=== PATIENT | male | born 1990 | race Caucasian/White ===

== ENCOUNTER 2016-11-08 18:46 | Emergency (ER) | payer MEDICAID ==
[~2016-11-08] VITALS: Ht 185.4 cm; Wt 77.0 kg
[~2016-11-08 18:46] MED LIST: BENZ100 PO; CETI10 PO; FLUT1SPR9; MONT10TA2 PO; PRED50 PO; VENTAER INH; ZITH250T PO
[2016-11-08 18:49] VITALS: BP 129/80; PULSE 69; RESP 16; TEMP 98.3; O2SAT 97
--- NOTE | 2016-11-08 19:05 | PD ---
HPI Chief Complaint: Musculoskeletal Complaint Time Seen by Provider: 19:05 Travel History International Travel<30 days: No Contact w/Intl Traveler<30days: No Traveled to known affect area: No History of Present Illness HPI 36-year-old male with PMH of asthma presents to the ED for evaluation of 6-8 month history of shooting pain in the extremities, numbness in the extremities, back pain, neck pain. He states that the numbness in his upper extremities begins distally and moves toward the body. He states that the upper extremity numbness occasionally wakes him from sleep. He states that the back pain radiates to bilateral buttocks, outer thighs and toes. He denies history of any traumatic/acute injury. He denies fevers, chills, weakness or limitations to ROM. He denies saddle anesthesia or incontinence. He sought treatment today because his legs are "going numb" at work. He takes no daily medications. Denies drug or alcohol use. NKDA. PFSH Past Medical History Asthma: Yes Diminished Hearing: No Headaches: Yes Psychiatric: No Respiratory: Yes (PNA) Integumentary: Yes (MRSA) Immunizations Current: Yes Tetanus Vaccination: < 5 Years Influenza Vaccination: No Past Surgical History Abdominal Surgery: Yes (Umb. hernia as ) Social History Alcohol Use: No Tobacco Use: No Substance Use: No (Denies today) Allergies-Medications (Allergen,Severity, Reaction): Coded Allergies: No Known Allergies (Verified , 11/08/16) Reported Meds & Prescriptions Reported Meds & Active Scripts Active No Active Prescriptions or Reported Medications Review of Systems Except as stated in HPI: all other systems reviewed are Neg Physical Exam Narrative GENERAL: Well-nourished, well-developed white male in no acute distress. SKIN: Warm and dry. Thorough evaluation reveals no edema, ecchymosis, abrasion , or laceration of the skin. HEAD: Normocephalic. Atraumatic. No raccoon eyes or renee sign. No tenderness to palpation of the skull. No bony step-offs. No malocclusion of the teeth. EYES: No scleral icterus. No injection or drainage. PERRLA. EOMI. ENT: Pearly quigley tympanic membrane is bilaterally. Nasal mucosa is moist. Oropharynx without erythema, edema or exudate. NECK: Supple, trachea midline. No JVD or lymphadenopathy. No midline tenderness to palpation. Patient retains full, active, painless range of motion of the neck. No meningeal signs. CARDIOVASCULAR: Regular rate and rhythm without murmurs, gallops, or rubs. 2+ DP and radial pulses bilaterally. RESPIRATORY: Breath sounds clear and equal bilaterally. No accessory muscle use. GASTROINTESTINAL: Abdomen soft, non-tender, nondistended. + Bowel sounds MUSCULOSKELETAL: No cyanosis, or edema. No tenderness to palpation or limitations to range of motion of the joints of the upper and lower extremities bilaterally. Phalen maneuver positive. Straight leg raise negative bilaterally. NEUROLOGICAL: Awake and alert. Cranial nerves II through XII intact. Motor and sensory grossly within normal limits. 5/5 muscle strength in all muscle groups. No pronator drift. Normal speech. BACK: Nontender without obvious deformity. No CVA tenderness. No midline tenderness. Data Data Last Documented VS Vital Signs Date Time Temp Pulse Resp B/P Pulse Ox O2 Delivery O2 Flow Rate FiO2 11/08/16 18:49 98.3 69 16 129/80 97 MDM Medical Decision Making Medical Screen Exam Complete: Yes Emergency Medical Condition: Yes Differential Diagnosis carpal tunnel versus sciatica versus meningitis versus malingering versus other Narrative Course 36-year-old male presents to the ED for evaluation of 6-8 month history of shooting pain in the extremities, numbness in the extremities, back pain, neck pain. He states that the numbness in his upper extremities begins distally and moves toward the body and occasionally wakes him from sleep. He states that the back pain radiates to bilateral buttocks, outer thighs and toes. He denies history of any traumatic/acute injury, fevers, chills, weakness, limitations to ROM,saddle anesthesia or incontinence. He sought treatment today because his legs are "going numb" at work. Vitals reviewed. Physical exam reveals a well- appearing male in no acute distress. No focal neural deficits, loss of strength , meningeal signs. Phalen's maneuver is positive. Patient is repeatedly requesting a CT. I informed him that there is no clinical indication for emergent CT at this time. He does describe symptoms consistent with sciatic neuralgia and carpal tunnel syndrome. Neither of these is an indication for a CT. I informed the patient of the patient chiropractic assistant's program and suggested that he establish primary care with Dr. Pineda who may order an outpatient CT. I offered patient medications to treat his sciatic neuralgia which he declined. Patient is instructed to follow up with the patient assistance program as discussed. He indicated understanding of the instructions and is agreeable to the care plan. He is stable and discharged home. Diagnosis Primary Impression: Encounter for medical screening examination Additional Impressions: Numbness and tingling in both hands Sciatica neuralgia Qualified Code: M54.31 - Bilateral sciatica Referrals: Becky Pineda MD Additional Instructions: [email or web address] registration will call your regarding the patient assistance program. Fill out the paperwork completely to be considered for free or reduced fee healthcare. Follow-up on an outpatient basis as discussed. Return to the ED for any urgent or emergent medical condition. Scripts No Active Prescriptions or Reported Meds Disposition: 01 DISCHARGE HOME Condition: Stable Cee Lee Nov 08, 2016 19:05
== END 2016-11-08 20:16 | disposition home or self-care (01) ==
LOC: PHEFT 18:46
DX: R20.0 Anesthesia of skin (principal); R20.2 Paresthesia of skin; M54.31 Sciatica, right side; M54.9 Dorsalgia, unspecified; M54.2 Cervicalgia; Z87.09 Personal history of other diseases of the respiratory system; Z86.14 Personal history of Methicillin resistant Staphylococcus aureus infection; Z13.9 Encounter for screening, unspecified
CPT/HCPCS: 99283

== ENCOUNTER 2017-01-24 00:15 | Emergency (ER) | payer MEDICAID ==
[~2017-01-24] VITALS: Ht 185.4 cm; Wt 77.5 kg
[2017-01-24 00:27] VITALS: BP 142/88; PULSE 90; RESP 18; TEMP 98.2; O2SAT 100
[2017-01-24 01:40] VITALS: O2SAT 100
[2017-01-24 01:45] VITALS: BP_SYST 122; BP_SYST 125; BP_DIAS 70; BP_DIAS 75; PULSE 60; RESP 18; O2SAT 100
[2017-01-24] MEDS ORDERED: SODIUM CHLORIDE 0.9% FLUSH 10 ML FLUSH IVF PRN (01:45)
[2017-01-24 02:07] LABS: AUTOMATED NEUTROPHIL # 6.9 TH/MM3 (1.8-7.7); BASOPHIL # 0.1 TH/MM3 (0-0.2); BASOPHIL % 0.8 % (0.0-2.0); EOSINOPHIL # 0.3 TH/MM3 (0-0.4); HEMATOCRIT 44.9 % (39.0-51.0); HEMO FLAGS DIFF FINAL; LYMPH % 20.7 % (9.0-44.0); LYMPHOCYTE # 2.1 TH/MM3 (1.0-4.8); MEAN CELL VOLUME 86.9 FL (80.0-100.0); MEAN CORPUSCULAR HEMOGLOBIN 29.1 PG (27.0-34.0); MEAN CORPUSCULAR HGB CONC 33.5 % (32.0-36.0); MONO % 7.4 % (0.0-8.0); NEUT % 68.1 % (16.0-70.0); PLATELET COUNT 220 TH/MM3 (150-450); RED BLOOD COUNT 5.17 MIL/MM3 (4.50-5.90); RED CELL DISTRIBUTION WIDTH 12.9 % (11.6-17.2); WHITE BLOOD COUNT 10.1 TH/MM3 (4.0-11.0)
--- NOTE | 2017-01-24 02:09 | RADRPT ---
EXAM DATE/TIME: 01/24/2017 01:53 [facility] COMPARISON: No previous studies available for comparison. INDICATIONS : Chest pain. MEDICAL HISTORY : Asthma. SURGICAL HISTORY : None. ENCOUNTER: Initial ACUITY: 1 day PAIN SCORE: 7/10 LOCATION: Bilateral chest FINDINGS: A single view of the chest demonstrates the lungs to be symmetrically aerated without evidence of mas s, infiltrate or effusion. The cardiomediastinal contours are unremarkable. Osseous structures are intact. CONCLUSION: No evidence of acute cardiopulmonary disease. Mauro Rizzo MD on January 24, 2017 at 2:07 Board Certified Radiologist. This report was verified electronically.
[2017-01-24 02:13] LABS: CHLORIDE 105 MEQ/L (98-107); POTASSIUM 3.5 MEQ/L (3.5-5.1); SODIUM (NA) 139 MEQ/L (136-145)
[2017-01-24 02:15] VITALS: BP 124/65; PULSE 60; RESP 18; O2SAT 99
[2017-01-24 02:16] LABS: ANION GAP 8 MEQ/L (5-15); BICARBONATE 26.2 MEQ/L (21.0-32.0); MAGNESIUM 2.3 MG/DL (1.5-2.5)
[2017-01-24 02:17] LABS: BLOOD UREA NITROGEN 9 MG/DL (7-18); PROTHROMBIN TIME - PATIENT 11.2 SEC (9.8-11.6)
[2017-01-24 02:20] LABS: GLOMERULAR FILTRATION RATE 107 ML/MIN (>89)
[2017-01-24 02:23] LABS: CREATINE KINASE 120 U/L (39-308)
[2017-01-24 02:35] LABS: CKMB 1.1 NG/ML (0.5-3.6)
--- NOTE | 2017-01-24 02:43 | PD ---
HPI Chief Complaint: Chest Pain Time Seen by Provider: 01:36 Travel History International Travel<30 days: No Contact w/Intl Traveler<30days: No Traveled to known affect area: No History of Present Illness HPI 26-year-old male presents to the emergency department by private transportation for complaint of chest pain and shortness of breath that he's noted each night about this time over the past 2 nights. Patient states he is very concerned as he has a family history of diabetes and cancer. Patient recently had family members from cancer including his sister is melanoma his grandfather with lung cancer in his grandmother with diabetes. Patient denies any family history of premature onset heart disease or sudden . Patient denies personal history of CAD, arrhythmia, hypertension, diabetes, dyslipidemia , tobacco use or alcohol use. Patient denies substance use. Patient also denies any recent long distance travel, protracted bedrest her surgical procedure. Patient denies any family history of personal history of clotting disorder or coagulopathy. Patient has had no pleuritic chest pain hemoptysis febrile illness infectious respiratory illness or lower extremity pain or swelling. Patient rates current discomfort 0/10 in intensity. PFSH Past Medical History Narrative Medical Asthma, pneumonia, herniorrhaphy, tobacco use; nursing notes reviewed Asthma: Yes Diminished Hearing: No Headaches: Yes Psychiatric: No Respiratory: Yes (PNA) Integumentary: Yes (MRSA) Immunizations Current: Yes Tetanus Vaccination: < 5 Years Influenza Vaccination: No Past Surgical History Abdominal Surgery: Yes (Umb. hernia as infant ) Social History Alcohol Use: No Tobacco Use: Yes (5-10 cigarettes per day ) Substance Use: No (Denies today) Allergies-Medications (Allergen,Severity, Reaction): Coded Allergies: No Known Allergies (Verified , 01/24/17) Reported Meds & Prescriptions Reported Meds & Active Scripts Active No Active Prescriptions or Reported Medications Review of Systems Except as stated in HPI: all other systems reviewed are Neg General / Constitutional: No: Fever, Chills Eyes: No: Visual changes HENT: No: Headaches, Lightheadedness, Congestion Cardiovascular: No: Chest Pain or Discomfort (occasional none now), Diaphoresis Respiratory: Positive: Shortness of Breath (occasional) Gastrointestinal: No: Abdominal Pain ( none now) Genitourinary: No: Flank Pain Musculoskeletal: No: Myalgias, Arthralgias, Cramping, Edema, Pain Neurologic: No: Weakness, Dizziness, Syncope, Focal Abnormalities, Coordination Problem Psychiatric: Positive: Anxiety Hematologic/Lymphatic: No: Lymph Node Enlargement Physical Exam Narrative GENERAL: Well-developed well-nourished male in no acute distress no respiratory distress SKIN: Warm and dry. HEAD: Normocephalic. EYES: No scleral icterus. No injection or drainage. NECK: Supple, trachea midline. No JVD or lymphadenopathy. CARDIOVASCULAR: Regular rate and rhythm without murmurs, gallops, or rubs. RESPIRATORY: Breath sounds equal bilaterally. No accessory muscle use. GASTROINTESTINAL: Abdomen soft, non-tender, nondistended. MUSCULOSKELETAL: No cyanosis, or edema. Bilateral radial and dorsalis pedis pulses 2+ to palpation BACK: Nontender without obvious deformity. No CVA tenderness. Data Data Last Documented VS Vital Signs Date Time Temp Pulse Resp B/P Pulse Ox O2 Delivery O2 Flow Rate FiO2 01/24/17 03:05 62 18 122/65 99 01/24/17 02:15 Room Air 01/24/17 00:27 98.2 Orders Electrocardiogram (01/24/17 01:11) Electrocardiogram (01/24/17 01:36) Basic Metabolic Panel (Bmp) (01/24/17 01:36) Ckmb (Isoenzyme) Profile (01/24/17 01:36) Complete Blood Count With Diff (01/24/17 01:36) Magnesium (Mg) (01/24/17 01:36) Prothrombin Time / Inr (Pt) (01/24/17 01:36) Act Partial Throm Time (Ptt) (01/24/17 01:36) Troponin I (01/24/17 01:36) Chest, Single Ap (01/24/17 01:36) Ecg Monitoring (01/24/17 01:36) Bilateral Bp Monitoring (01/24/17 01:36) Iv Access Insert/Monitor (01/24/17 01:36) Oximetry (01/24/17 01:36) Oxygen Administration (01/24/17 01:36) Sodium Chloride 0.9% Flush (Ns Flush) (01/24/17 01:45) CKMB (01/24/17 01:45) CKMB% (01/24/17 01:45) Labs Laboratory Tests Test 01/24/17 01:45 White Blood Count 10.1 TH/MM3 Red Blood Count 5.17 MIL/MM3 Hemoglobin 15.1 GM/DL Hematocrit 44.9 % Mean Corpuscular Volume 86.9 FL Mean Corpuscular Hemoglobin 29.1 PG Mean Corpuscular Hemoglobin 33.5 % Concent Red Cell Distribution Width 12.9 % Platelet Count 220 TH/MM3 Mean Platelet Volume 8.8 FL Neutrophils (%) (Auto) 68.1 % Lymphocytes (%) (Auto) 20.7 % Monocytes (%) (Auto) 7.4 % Eosinophils (%) (Auto) 3.0 % Basophils (%) (Auto) 0.8 % Neutrophils # (Auto) 6.9 TH/MM3 Lymphocytes # (Auto) 2.1 TH/MM3 Monocytes # (Auto) 0.7 TH/MM3 Eosinophils # (Auto) 0.3 TH/MM3 Basophils # (Auto) 0.1 TH/MM3 CBC Comment DIFF FINAL Differential Comment Prothrombin Time 11.2 SEC Prothromb Time International 1.0 RATIO Ratio Activated Partial 29.0 SEC Thromboplast Time Sodium Level 139 MEQ/L Potassium Level 3.5 MEQ/L Chloride Level 105 MEQ/L Carbon Dioxide Level 26.2 MEQ/L Anion Gap 8 MEQ/L Blood Urea Nitrogen 9 MG/DL Creatinine 0.86 MG/DL Estimat Glomerular Filtration 107 ML/MIN Rate Random Glucose 96 MG/DL Calcium Level 8.9 MG/DL Magnesium Level 2.3 MG/DL Total Creatine Kinase 120 U/L Creatine Kinase MB 1.1 NG/ML Troponin I LESS THAN 0.02 NG/ML MDM Medical Decision Making Medical Screen Exam Complete: Yes Emergency Medical Condition: Yes Medical Record Reviewed: Yes Interpretation(s) EKG: Normal sinus rhythm no acute ST elevation injury pattern or ectopy noted; rightward axis, incomplete right bundle branch. Troponin I less than 0.02, not elevated CKs 120, not elevated Last Impressions Chest X-Ray 01/24/17 0136 Signed Impressions: Service Date/Time: January 01:53 - CONCLUSION: No evidence of acute cardiopulmonary disease. aMuro Rizzo MD CBC & BMP Diagram 01/24/17 01:45 Vital Signs Date Time Temp Pulse Resp B/P Pulse Ox O2 Delivery O2 Flow Rate FiO2 01/24/17 01:50 18 100 Room Air 6/22/17 01:45 60 18 125/70 100 Room Air 122/75 01/24/17 01:40 100 Room Air 01/24/17 01:40 100 Room Air 01/24/17 00:27 98.2 90 18 142/88 100 Differential Diagnosis Dyspnea, atypical chest pain, ACS, MO, arrhythmia, electronic disturbance, PE, pneumonia, dehydration, substance ingestion anxiety Narrative Course Patient placed on cafeteria monitor EKG performed IV access obtained and specimens collected and sent for resulting she shows no acute ST elevation or injury PERC negative Lab values found to be grossly normal range; EKG shows no tachycardia and room air O2 saturation 100%; patient denies any symptoms at this time; patient has experienced no chest pain or pleuritic chest pain or shortness of breath in the emergency department. Patient is stable for outpatient management and follow- up with primary care provider. Diagnosis Primary Impression: Atypical chest pain Referrals: Primary Care Physician call for appointment Patient Instructions: General Instructions Additional Instructions: Increase fluid hydration Follow-up with primary care provider Return to the emergency department for any concerns or change in condition Scripts No Active Prescriptions or Reported Meds Disposition: 01 DISCHARGE HOME Condition: Stable Olivia Christopher MD Jan 24, 2017 02:43
[2017-01-24 03:05] VITALS: BP 122/65
--- NOTE | 2017-01-24 14:02 | EKG ---
Date Performed: 01/24/2017 Time Performed: 01:26:50 PTAGE: 26 years EKG: SINUS BRADYCARDIA MARKED RIGHT AXIS DEVIATION INCOMPLETE RIGHT BUNDLE BRANCH BLOCK ABNORMAL ECG Compared to prior tracing no significant change PREVIOUS TRACING : 01/24/2017 01.19 DOCTOR: Anna Lambert Interpretating Date/Time 01/25/2017 07:56:07
== END 2017-01-24 03:15 | disposition home or self-care (01) ==
LOC: PHED 00:15
DX: R07.89 Other chest pain (principal); R06.02 Shortness of breath; F17.210 Nicotine dependence, cigarettes, uncomplicated; Z86.14 Personal history of Methicillin resistant Staphylococcus aureus infection; R00.1 Bradycardia, unspecified; I45.10 Unspecified right bundle-branch block; R94.31 Abnormal electrocardiogram [ECG] [EKG]
CPT/HCPCS: 71010; 80048; 82550; 82552; 83735; 84484; 85025; 85610; 85730; 93005; 99285

== ENCOUNTER 2017-09-17 21:45 | Emergency (ER) | payer MEDICAID, OTHER ==
[2017-09-17 22:07] VITALS: BP 117/58; PULSE 70; RESP 16; TEMP 98.1; O2SAT 98
[2017-09-18 01:20] VITALS: BP 123/73; PULSE 49; RESP 14; O2SAT 100
[2017-09-18] MEDS ORDERED: LIDOCAINE HCL 1% 20 ML VIAL INFIL ONE (01:45)
[2017-09-18] MEDS ORDERED: diphenhydrAMINE HCL 50 MG CAP PO ONE (01:45)
[2017-09-18] MEDS ORDERED: ACETAMINOPHEN 325 MG TAB PO ONE (01:45)
--- NOTE | 2017-09-18 01:48 | PD ---
HPI Chief Complaint: Skin Problem Time Seen by Provider: 01:31 Travel History International Travel<30 days: No Contact w/Intl Traveler<30days: No Traveled to known affect area: No History of Present Illness HPI 27yo M with PMH of asthma here with 2 separate complaints. Pt said he was at work and cut his right hand with a piece of plastic at the garbage dumpster at 2 :30pm today. Said there was no metal or glass. Pt also had exposure to poison micaela today as he works outside and has a itchy rash today. Said he has had this before. He has been scratching it. Denies any fever, chest pain, sob, tongue or lip swelling, n/v, abdominal pain, focal weakness or numbness. Up to date on tetanus. PFSH Past Medical History Asthma: Yes Diminished Hearing: No Headaches: Yes Psychiatric: No Respiratory: Yes (PNA) Integumentary: Yes (MRSA) Immunizations Current: Yes ?: Not Past Surgical History Abdominal Surgery: Yes (Umb. hernia as infant ) Social History Alcohol Use: No Tobacco Use: No (QUIT 09/05/17) Substance Use: No (Denies today) Allergies-Medications (Allergen,Severity, Reaction): Coded Allergies: No Known Allergies (Verified Allergy, Unknown, 09/18/17) Reported Meds & Prescriptions Reported Meds & Active Scripts Active Cephalexin 500 Mg Cap 500 Mg PO Q12H 7 Days Diphenhydramine (Diphenhydramine HCl) 25 Mg Tab 25 Mg PO Q6H PRN 5 Days Calamine Medicated Topical (Pramoxine-Calamine Topical) 1-8 % Lotn 1 Applic TOPICAL TID 5 Days Review of Systems Except as stated in HPI: all other systems reviewed are Neg Physical Exam Narrative GENERAL: 27yo M in mild distress. SKIN: Multiple clusters of erythematous papules and excoriation in left upper extremity, abdomen and right neck. HEAD: Atraumatic. Normocephalic. EYES: Pupils equal and round. No scleral icterus. No injection or drainage. ENT: No tongue or lip swelling. Uvula midline and not swollen. NECK: Trachea midline. No JVD. CARDIOVASCULAR: Regular rate and rhythm. No murmur appreciated. RESPIRATORY: No accessory muscle use. Mild end expiratory wheezing bilaterally. GASTROINTESTINAL: Abdomen soft, non-tender, nondistended. MUSCULOSKELETAL: Right hand: +2.5 cm laceration volar aspect in between 1st and 2nd digit. FROM in all digits. Muscle strength intact. Sensation intact. Radial pulse 2+. NEUROLOGICAL: Awake and alert. No obvious cranial nerve deficits. Motor grossly within normal limits. Normal speech. PSYCHIATRIC: Appropriate mood and affect; insight and judgment normal. Data Data Last Documented VS Vital Signs Date Time Temp Pulse Resp B/P (MAP) Pulse Ox O2 Delivery O2 Flow Rate FiO2 09/18/17 03:05 09/18/17 02:51 14 09/18/17 02:50 49 100 Room Air 09/17/17 22:07 98.1 Orders Orders Diphenhydramine (Benadryl) (09/18/17 01:45) Acetaminophen (Tylenol) (09/18/17 01:45) Lidocaine Pf 1% Inj (Xylocaine-Mpf 1% In (09/18/17 02:00) Ed Discharge Order (09/18/17 02:48) MDM Medical Decision Making Medical Screen Exam Complete: Yes Emergency Medical Condition: Yes Differential Diagnosis Laceration to hand vs. atopic dermatitis vs. poison micaela exposure Narrative Course 27yo M with laceration to right hand. Tetanus up to date. 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 Laceration repaired. Pt given diphenhydramine and acetaminophen and itching improved. Pt did have some wheezing on exam but said he has no sob and does not want any treatment. Has history of asthma. Return precautions given. Procedures Procedure Narrative LACERATION LOCATION: right hand LENGTH: 2.5cm NUMBER OF STITCHES/PABLO: 3 REPAIR: The area of the laceration was prepped with Betadine and sterilely draped. The laceration was infiltrated with 1% lidocaine. The wound was copiously irrigated and explored without evidence of foreign body, tendon injury or neurovascular injury. The wound was closed using 5-0 nylon. This was a single layer repair. A sterile dressing was applied. The patient was advised to keep the dressing clean and dry. Patient tolerated the procedure well. Diagnosis Primary Impression: Laceration of hand Qualified Codes: S61.411A - Laceration without foreign body of right hand, initial encounter Additional Impression: Poison micaela dermatitis Patient Instructions: General Instructions Departure Forms: Tests/Procedures Additional Instructions: Please return to the ED in 7-10 days or primary care physician's office for suture removal. Return to the ED if signs of infection or worsening symptoms. Med/Other Pt SpecificInfo: Prescription(s) given Scripts Cephalexin (Cephalexin) 500 Mg Cap 500 MG PO Q12H for Infection for 7 Days, #14 CAP 0 Refills Prov: Melita Guido DO 09/18/17 Diphenhydramine (Diphenhydramine) 25 Mg Tab 25 MG PO Q6H Y for ITCHING for 5 Days, #20 TAB 0 Refills Prov: Melita Guido DO 09/18/17 Pramoxine-Calamine Topical (Calamine Medicated Topical) 1-8 % Lotn 1 APPLIC TOPICAL TID for 5 Days Prov: Melita Guido DO 09/18/17 Disposition: 01 DISCHARGE HOME Condition: Stable Melita Guido DO Sep 18, 2017 01:48
[2017-09-18] MEDS ORDERED: LIDOCAINE HCL 1% PF 30 ML VIAL INFIL ONE (02:00)
[2017-09-18] MEDS ORDERED: DIPH25TA2 PO (02:47)
[2017-09-18] MEDS ORDERED: CEPH500C PO (02:47)
[2017-09-18] MEDS ORDERED: [UNRECOGNIZED DRUG - CODE] TOPICAL (02:47)
[2017-09-18 02:50] VITALS: BP 126/76; PULSE 49; RESP 14; O2SAT 100
[2017-09-18 02:51] VITALS: RESP 14
== END 2017-09-18 03:07 | disposition home or self-care (01) ==
LOC: PHED 21:45
DX: S61.411A Laceration without foreign body of right hand, initial encounter (principal); L23.7 Allergic contact dermatitis due to plants, except food; J45.909 Unspecified asthma, uncomplicated
CPT/HCPCS: 12001; 99283; Q0163